=== PATIENT | female | born 1935 | race Caucasian/White ===

== ENCOUNTER 2016-10-30 06:22 | Day surgery (SDC) | payer BC ==
[2016-10-27 17:34] LABS: HEMATOCRIT 38.7 % (36.0-48.0); HEMOGLOBIN 12.4 g/dL (12.0-16.0)
[2016-10-27 17:51] LABS: CALCIUM, SERUM 9.1 MG/DL (8.5-10.4); CHLORIDE, SERUM 104 MMOL/L (96-112); CO2 (CARBON DIOXIDE) 30 MMOL/L (24-34); CREATININE 1.13 MG/DL (0.55-1.02); GFR AFRICAN AMERICAN 53 ML/MIN (>=60); GFR NON AFRICAN AMERICAN 46 ML/MIN (>=60); GLUCOSE, SERUM 110 MG/DL (60-99); SODIUM, SERUM 142 MMOL/L (135-148)
[2016-10-27 17:52] LABS: BUN (BLOOD UREA NITROGEN) 23 MG/DL (6-23)
[~2016-10-30 06:22] MED LIST: ANTIBIOTIC; ASAB PO; BRILINTA90 MG PO; C5 PO; CILOXAN OPH; GLUCPH PO; HALF81 PO; HYDROCHLOROT12.5 MG PO; HYDROCHLOROT25 MG PO; K-TABS10 MEQ PO; LEVAQ250 PO; LISINOPRIL PO; LOP100 PO; LOP50 PO; LOTE20 PO; NEXIUM40 PO; P10 PO; PLAVIX PO; PRINZIDE1 TAB PO; PROAIR HFA INH; PROTONIX PO; SPIRIVA INH; T PO; TOPXL100 PO; TOPXL50 PO; XARELTO15 MG PO; ZANTAC150 MG PO
[2016-11-05] MEDS ORDERED: BYSTOLIC20 MG PO (12:07)
[2016-11-05] MEDS ORDERED: DEMA10T PO (12:08)
== END 2016-10-30 23:59 | disposition home or self-care (01) ==
LOC: SDC 06:22
PROVIDERS: Ophthalmology
DX: H26.9 Unspecified cataract (principal); I10 Essential (primary) hypertension; Z53.09 Procedure and treatment not carried out because of other contraindication
CPT/HCPCS: 80048; 85014; 85018; 93005

== ENCOUNTER 2016-11-06 08:43 | Day surgery (SDC) | payer BC ==
[~2016-11-06 08:43] MED LIST changes: +BYSTOLIC20 MG PO; +DEMA10T PO
== END 2016-11-06 12:26 | disposition home or self-care (01) ==
LOC: SDC 08:43
PROVIDERS: Ophthalmology
PROC: 08RK3JZ Replacement of Left Lens with Synthetic Substitute, Percutaneous Approach (ICD-10-PCS; principal; 2016-11-06 10:45)
DX: H25.12 Age-related nuclear cataract, left eye (principal); I10 Essential (primary) hypertension; I73.9 Peripheral vascular disease, unspecified; I25.10 Atherosclerotic heart disease of native coronary artery without angina pectoris; E11.9 Type 2 diabetes mellitus without complications; Z88.8 Allergy status to other drugs, medicaments and biological substances; Z88.1 Allergy status to other antibiotic agents
CPT/HCPCS: 82962; J0360; J2405; J3370

== ENCOUNTER 2016-12-18 07:46 | Day surgery (SDC) | payer BC ==
[2016-12-15 12:56] LABS: HEMATOCRIT 35.8 % (36.0-48.0); HEMOGLOBIN 11.3 g/dL (12.0-16.0)
[2016-12-15 13:10] LABS: BUN (BLOOD UREA NITROGEN) 24 MG/DL (6-23); CALCIUM, SERUM 9.2 MG/DL (8.5-10.4); CHLORIDE, SERUM 107 MMOL/L (96-112); CO2 (CARBON DIOXIDE) 28 MMOL/L (24-34); CREATININE 1.11 MG/DL (0.55-1.02); GFR AFRICAN AMERICAN 54 ML/MIN (>=60); GFR NON AFRICAN AMERICAN 47 ML/MIN (>=60); GLUCOSE, SERUM 109 MG/DL (60-99); POTASSIUM, SERUM 5.1 MMOL/L (3.5-5.3); SODIUM, SERUM 143 MMOL/L (135-148)
== END 2016-12-18 12:34 | disposition home or self-care (01) ==
LOC: SDC 07:46
PROVIDERS: Ophthalmology
PROC: 08RJ3JZ Replacement of Right Lens with Synthetic Substitute, Percutaneous Approach (ICD-10-PCS; principal; 2016-12-18 09:15)
DX: H25.11 Age-related nuclear cataract, right eye (principal); E11.51 Type 2 diabetes mellitus with diabetic peripheral angiopathy without gangrene; I10 Essential (primary) hypertension; I25.10 Atherosclerotic heart disease of native coronary artery without angina pectoris; J18.9 Pneumonia, unspecified organism; Z88.0 Allergy status to penicillin; Z88.8 Allergy status to other drugs, medicaments and biological substances; Z79.82 Long term (current) use of aspirin; Z79.899 Other long term (current) drug therapy; Z86.718 Personal history of other venous thrombosis and embolism; Z90.710 Acquired absence of both cervix and uterus; Z98.42 Cataract extraction status, left eye; Z98.890 Other specified postprocedural states
CPT/HCPCS: 80048; 82962; 85014; 85018; 93005; J2405; J3370; V2787